=== PATIENT | female | born 1990 | race American Indian/Alaskan Native ===

== ENCOUNTER 2018-10-16 17:16 | Emergency (ER) | payer OTHER ==
--- NOTE | 2018-10-16 17:34 | Event Note ---
ED Screening Note Date of service: 10/16/18 Time: 17:27 ED Screening Note: This is a 28 y.o. F. that presents to the ER with right flank pain, n/v, and abdominal cramping. Patient is 14 or 15 weeks without [employer] following. Denies vaginal bleeding or discharge LMP 07/02/2018, A2 (1 miscarriage & 1 ) This initial assessment/diagnostic orders/clinical plan/treatment(s) is/are subject to change based on patients health status, clinical progression and re- assessment by fellow clinical providers in the ED. Further treatment and workup at subsequent clinical providers discretion. Patient/guardian urged not to elope from the ED as their condition may be serious if not clinically assessed and managed. Initial orders include: Labs and Ob US
[2018-10-16 18:49] LABS: Basophils % (Auto) 0.3 % (0.0-1.8); Eosinophils % (Auto) 0.3 % (0.0-4.3); Hematocrit 34.4 % (30.3-42.9); Hemoglobin 11.8 gm/dl (10.1-14.3); Lymphocytes # (Auto) 1.4 K/mm3 (1.2-5.4); Lymphocytes % (Auto) 32.6 % (13.4-35.0); Mean Corpuscular HGB Conc 34 % (30-34); Mean Corpuscular Volume 96 fl (79-97); Monocytes # (Auto) 0.4 K/mm3 (0.0-0.8); Monocytes % (Auto) 9.7 % (0.0-7.3); Platelet Count 170 K/mm3 (140-440); Red Blood Count 3.59 M/mm3 (3.65-5.03); Red Cell Distribution Width 13.1 % (13.2-15.2)
[2018-10-16 19:05] LABS: Alanine Aminotransferase 9 units/L (7-56); Albumin 3.8 g/dL (3.9-5); BUN/Creatinine Ratio 16; Blood Urea Nitrogen 8 mg/dL (7-17); Calcium 8.7 mg/dL (8.4-10.2); Hemolysis Index 7
[2018-10-16] MEDS ORDERED: REGLAN PO ONE (19:50)
[2018-10-16] MEDS ORDERED: BENADRYL PO ONE (19:50)
--- NOTE | 2018-10-16 19:54 | Emergency Department Report ---
ED Abdominal Pain HPI - General Chief Complaint: Nausea/Vomiting/Diarrhea Stated Complaint: 15WKS /VOMITING Time Seen by Provider: 10/16/18 17:27 Source: patient Mode of arrival: Ambulatory Limitations: No Limitations - History of Present Illness Initial Comments: This is a 28 y.o. F. that presents to the ER with right flank pain, n/v, and abdominal cramping. Patient is 14 or 15 weeks without [employer] following. Denies vaginal bleeding or discharge LMP 07/02/2018, A2 (1 miscarriage & 1 ) MD Complaint: abdominal pain, flank pain Onset/Timin -: week(s) Location: R flank Radiation: back Severity: moderate Severity scale (0 -10): 4 Quality: cramping, aching Consistency: intermittent Improves With: nothing Worsens With: nothing Associated Symptoms: nausea, vomiting. denies: diarrhea, fever, chills, constipation, dysuria, melena - Related Data LMP Date: 07/02/18 Previous Rx's Medication Instructions Recorded Last Taken Type Acetaminophen [Acetaminophen TAB] 650 mg PO Q6HR PRN #30 tablet 10/16/18 Unknown Rx Metoclopramide [Reglan] 10 mg PO TID PRN #20 tab 10/16/18 Unknown Rx Nitrofurantoin Titus/M-Cryst 100 mg PO BID 7 Days #14 capsule 10/16/18 Unknown Rx [Macrobid CAP] Allergies Allergy/AdvReac Type Severity Reaction Status Date / Time ondansetron [From Zofran] Allergy Unknown Verified 10/16/18 17:34 ED Review of Systems ROS: Stated complaint: 15WKS /VOMITING Other details as noted in HPI Constitutional: denies: chills, fever Eyes: denies: eye pain, eye discharge, vision change ENT: denies: ear pain, throat pain Respiratory: denies: cough, shortness of breath, wheezing Cardiovascular: denies: chest pain, palpitations Endocrine: no symptoms reported Gastrointestinal: abdominal pain, nausea, vomiting. denies: diarrhea, constipation Genitourinary: denies: urgency, dysuria, frequency, hematuria, discharge Musculoskeletal: back pain (right flankl ) Skin: denies: rash, lesions Neurological: denies: headache, weakness, paresthesias Psychiatric: denies: anxiety, depression Hematological/Lymphatic: denies: easy bleeding, easy bruising ED Past Medical Hx - Past Medical History Previous Medical History?: No - Surgical History Past Surgical History?: No - Social History Smoking Status: Never Smoker Substance Use Type: None - Medications Home Medications: Home Medications Medication Instructions Recorded Confirmed Last Taken Type Acetaminophen [Acetaminophen TAB] 650 mg PO Q6HR PRN #30 tablet 10/16/18 Unknown Rx Metoclopramide [Reglan] 10 mg PO TID PRN #20 tab 10/16/18 Unknown Rx Nitrofurantoin Titus/M-Cryst 100 mg PO BID 7 Days #14 capsule 10/16/18 Unknown Rx [Macrobid CAP] ED Physical Exam - General Limitations: No Limitations General appearance: alert, in no apparent distress - Head Head exam: Present: atraumatic, normocephalic - Eye Eye exam: Present: normal appearance, PERRL, EOMI Pupils: Present: normal accommodation - ENT ENT exam: Present: normal orophraynx, mucous membranes moist, TM's normal bilaterally, normal external ear exam - Neck Neck exam: Present: normal inspection, tenderness, full ROM - Respiratory Respiratory exam: Present: normal lung sounds bilaterally. Absent: respiratory distress - Cardiovascular Cardiovascular Exam: Present: regular rate, normal rhythm. Absent: systolic mu rmur, diastolic murmur, rubs, gallop - GI/Abdominal GI/Abdominal exam: Present: soft, tenderness (bialt Lower quad tenderness ), normal bowel sounds. Absent: distended, guarding, rebound, rigid, bruit, hernia - Rectal Rectal exam: Present: deferred - Extremities Exam Extremities exam: Present: normal inspection, full ROM, normal capillary refill. Absent: tenderness, pedal edema, joint swelling - Back Exam Back exam: Present: normal inspection, full ROM. Absent: tenderness, CVA tenderness (R), CVA tenderness (L), muscle spasm, paraspinal tenderness, vertebral tenderness, rash noted - Neurological Exam Neurological exam: Present: alert, oriented X3, CN II-XII intact, normal gait, reflexes normal. Absent: motor sensory deficit - Psychiatric Psychiatric exam: Present: normal affect, normal mood - Skin Skin exam: Present: warm, dry, intact, normal color. Absent: rash ED Course Vital Signs 10/16/18 17:29 Temperature 97.6 F Pulse Rate 106 H Respiratory 18 Rate Blood Pressure 131/59 O2 Sat by Pulse 98 Oximetry ED Medical Decision Making - Lab Data Result diagrams: 10/16/18 18:26 10/16/18 18:26 Lab Results 10/16/18 10/16/18 10/16/18 Range/Units 18:26 18:26 18:26 WBC 4.4 L (4.5-11.0) K/mm3 RBC 3.59 L (3.65-5.03) M/mm3 Hgb 11.8 (10.1-14.3) gm/dl Hct 34.4 (30.3-42.9) % MCV 96 (79-97) fl MCH 33 H (28-32) pg MCHC 34 (30-34) % RDW 13.1 L (13.2-15.2) % Plt Count 170 (140-440) K/mm3 Lymph % (Auto) 32.6 (13.4-35.0) % Titus % (Auto) 9.7 H (0.0-7.3) % Eos % (Auto) 0.3 (0.0-4.3) % Baso % (Auto) 0.3 (0.0-1.8) % Lymph # 1.4 (1.2-5.4) K/mm3 Titus # 0.4 (0.0-0.8) K/mm3 Eos # 0.0 (0.0-0.4) K/mm3 Baso # 0.0 (0.0-0.1) K/mm3 Seg Neutrophils % 57.1 (40.0-70.0) % Seg Neutrophils # 2.5 (1.8-7.7) K/mm3 Sodium 139 (137-145) mmol/L Potassium 4.0 (3.6-5.0) mmol/L Chloride 105.6 (98-107) mmol/L Carbon Dioxide 25 (22-30) mmol/L Anion Gap 12 mmol/L BUN 8 (7-17) mg/dL Creatinine 0.5 L (0.7-1.2) mg/dL Estimated GFR > 60 ml/min BUN/Creatinine Ratio 16 % Glucose 88 (65-100) mg/dL Calcium 8.7 (8.4-10.2) mg/dL Total Bilirubin < 0.20 (0.1-1.2) mg/dL AST 11 (5-40) units/L ALT 9 (7-56) units/L Alkaline Phosphatase 47 (35-129) units/L Total Protein 6.6 (6.3-8.2) g/dL Albumin 3.8 L (3.9-5) g/dL Albumin/Globulin Ratio 1.4 % HCG, Quant 77221 H (0-4) mIU/mL Urine Color (Yellow) Urine Turbidity (Clear) Urine pH (5.0-7.0) Ur Specific [place] (1.003-1.030) Urine Protein (Negative) mg/dL Urine Glucose (UA) (Negative) mg/dL Urine Ketones (Negative) mg/dL Urine Blood (Negative) Urine Nitrite (Negative) Urine Bilirubin (Negative) Urine Urobilinogen (<2.0) mg/dL Ur Leukocyte Esterase (Negative) Urine WBC (Auto) (0.0-6.0) /HPF Urine RBC (Auto) (0.0-6.0) /HPF U Epithel Cells (Auto) (0-13.0) /HPF Urine Bacteria (Auto) (Negative) /HPF Calcium Oxalate Crystal Amorphous Crystals Urine Mucus /HPF 10/16/18 Range/Units 19:18 WBC (4.5-11.0) K/mm3 RBC (3.65-5.03) M/mm3 Hgb (10.1-14.3) gm/dl Hct (30.3-42.9) % MCV (79-97) fl MCH (28-32) pg MCHC (30-34) % RDW (13.2-15.2) % Plt Count (140-440) K/mm3 Lymph % (Auto) (13.4-35.0) % Titus % (Auto) (0.0-7.3) % Eos % (Auto) (0.0-4.3) % Baso % (Auto) (0.0-1.8) % Lymph # (1.2-5.4) K/mm3 Titus # (0.0-0.8) K/mm3 Eos # (0.0-0.4) K/mm3 Baso # (0.0-0.1) K/mm3 Seg Neutrophils % (40.0-70.0) % Seg Neutrophils # (1.8-7.7) K/mm3 Sodium (137-145) mmol/L Potassium (3.6-5.0) mmol/L Chloride (98-107) mmol/L Carbon Dioxide (22-30) mmol/L Anion Gap mmol/L BUN (7-17) mg/dL Creatinine (0.7-1.2) mg/dL Estimated GFR ml/min BUN/Creatinine Ratio % Glucose (65-100) mg/dL Calcium (8.4-10.2) mg/dL Total Bilirubin (0.1-1.2) mg/dL AST (5-40) units/L ALT (7-56) units/L Alkaline Phosphatase (35-129) units/L Total Protein (6.3-8.2) g/dL Albumin (3.9-5) g/dL Albumin/Globulin Ratio % HCG, Quant (0-4) mIU/mL Urine Color Yellow (Yellow) Urine Turbidity Cloudy (Clear) Urine pH 7.0 (5.0-7.0) Ur Specific [place] 1.023 (1.003-1.030) Urine Protein <15 mg/dl (Negative) mg/dL Urine Glucose (UA) Neg (Negative) mg/dL Urine Ketones Neg (Negative) mg/dL Urine Blood Neg (Negative) Urine Nitrite Pos (Negative) Urine Bilirubin Neg (Negative) Urine Urobilinogen < 2.0 (<2.0) mg/dL Ur Leukocyte Esterase Neg (Negative) Urine WBC (Auto) 12.0 H (0.0-6.0) /HPF Urine RBC (Auto) 12.0 (0.0-6.0) /HPF U Epithel Cells (Auto) 5.0 (0-13.0) /HPF Urine Bacteria (Auto) 1+ (Negative) /HPF Calcium Oxalate Crystal Few Amorphous Crystals Few Urine Mucus Few /HPF - Radiology Data Radiology results: report reviewed, image reviewed Ordering Physician: LAMONTE PENA Date of Service: 10/16/18 Procedure(s): US OB >= 14 weeks Fetus Accession Number(s): [id number] cc: LAMONTE PENA Limited obstetrical ultrasound INDICATION: 14 week , abdominal pain and cramping, nausea, vomiting, right flank pain Limited transabdominal study was performed. Intrauterine is seen with estimated gestational age of 14 weeks 3 days which corresponds to menstrual dating of 14 weeks 1 day. I do not see a significant discrepancy between head and body measurements. Placenta is posterior and fundal. Full anatomical survey was not performed but no obvious anomalies were seen. Amniotic fluid volume appears appropriate qualitatively. EVE was calculated at 3.6 cm but is difficult to assess at this stage of . cardiac activity was documented at 152 bpm. At the time the examination the fetus is in a breech presentation. A small left ovarian cyst is seen measuring 15 mm which is mildly complex. Flow is seen in the left ovary. Right ovary is not identified. No free fluid is seen. IMPRESSION: Limited examination shows no obvious abnormalities of the Signer Name: Hank Kamara MD Signed: 10/16/2018 8:15 PM Workstation Name: [id number] Transcribed By: GJ Dictated By: Hank Kamara MD Electronically Authenticated By: Hank Kamara MD Signed Date/Time: 10/16/182014 DD/ 09 TD/TT: - Medical Decision Making US: single IUP 14 weeks and 3 days, FHR: 152 bpm, ovarian cyst left, pt denies dysuria no hematuria no fever or chills no flow problem, no cva tenderness this not likely a renal stone, however is symptoms persist after delivery or worsen to dysuria fever chills or trouble voiding will referr to urology , no hx of renal stones. ua: wbc and rbc plan, macrobid, reglan, tylenol follow up with OBGYN in 2-3 days. pt verbalized agreement and undestanding of discharge plan. Critical care attestation.: If time is entered above; I have spent that time in minutes in the direct care of this critically ill patient, excluding procedure time. ED Disposition Clinical Impression: Abdominal pain during intrauterine UTI (urinary tract infection) Qualifiers: Urinary tract infection type: acute cystitis Hematuria presence: without hematuria Qualified Code(s): N30.00 - Acute cystitis without hematuria Disposition: - TO HOME OR SELFCARE Is pt being admited?: No Does the pt Need Aspirin: No Condition: Stable Instructions: Urinary Tract Infection in Women (ED), Abdominal Pain in (ED) Prescriptions: Acetaminophen [Acetaminophen TAB] 650 mg PO Q6HR PRN #30 tablet PRN Reason: Pain Nitrofurantoin Titus/M-Cryst [Macrobid CAP] 100 mg PO BID 7 Days #14 capsule Metoclopramide [Reglan] 10 mg PO TID PRN #20 tab PRN Reason: Nausea And Vomiting Referrals: SELMA HOUSTON MD [Staff Physician] - 3-5 Days JIMMY HOUSTON MD [Referring] - 3-5 Days Forms: Work/School Release Form(ED) Time of Disposition: 20:33
[2018-10-16 20:05] LABS: Amorphous Crystals,Urine Few; Bacteria,Urine 1+ /HPF (Negative); Bilirubin,Urine NEG (Negative); Blood,Urine NEG (Negative); Calcium Oxalate Crystals,Urine FEW; Color,Urine Yellow (Yellow); Mucus,Urine FEW /HPF; Protein,Urine <15 mg/dL mg/dL (Negative); Urobilinogen,Urine < 2.0 mg/dL (<2.0)
--- NOTE | 2018-10-16 20:20 | Ultrasound Report ---
Limited obstetrical ultrasound INDICATION: 14 week , abdominal pain and cramping, nausea, vomiting, right flank pain Limited transabdominal study was performed. Intrauterine is seen with estimated gestational age of 14 weeks 3 days which corresponds to menstrual dating of 14 weeks 1 day. I do not see a significant discrepancy between head and body digna surements. Placenta is posterior and fundal. Full anatomical survey was not performed but no obvious anomalies w ere seen. Amniotic fluid volume appears appropriate qualitatively. EVE was calculated at 3.6 cm but i s difficult to assess at this stage of . cardiac activity was documented at 152 bpm. A t the time the examination the fetus is in a breech presentation. A small left ovarian cyst is seen measuring 15 mm which is mildly complex. Flow is seen in the left o vary. Right ovary is not identified. No free fluid is seen. IMPRESSION: Limited examination shows no obvious abnormalities of the Signer Name: Hank Kamara MD Signed: 10/16/2018 8:15 PM Workstation Name: [id number]
[2018-10-16 21:04] VITALS: BP 102/65
== END 2018-10-16 21:02 | disposition home or self-care (01) ==
LOC: ED 17:16
DX: O23.42 Unspecified infection of urinary tract in pregnancy, second trimester (principal); Z3A.15 15 weeks gestation of pregnancy; Z79.899 Other long term (current) drug therapy; Z88.6 Allergy status to analgesic agent
CPT/HCPCS: 36415; 76805; 80053; 81001; 84702; 85025; 87086; 99284